=== PATIENT | female | born 1930 | race Caucasian/White ===

== ENCOUNTER 2019-02-23 05:47 | Inpatient (IN) | payer OTHER, MEDICARE ==
[2019-02-21 11:16] VITALS: BMI 27.4
[2019-02-23] MEDS ORDERED: TRANEXAMIC ACID 1000 MG/10 ML VIAL IVPUSH ONE (06:43)
[2019-02-23] MEDS ORDERED: VANCOMYCIN 1,000 MG in DEXTROSE 5%-WATER - 250 ML IVPB ONE (06:43)
[2019-02-23] MEDS ORDERED: ePHEDrine SULFATE 50 MG/1 ML AMPULE ONE (07:09)
[2019-02-23] MEDS ORDERED: PROPOFOL 20 ML ONE (07:09)
[2019-02-23] MEDS ORDERED: SUCCINYLCHOLINE CHLORIDE 200 MG/10 ML VIAL ONE (07:09)
[2019-02-23] MEDS ORDERED: ONDANSETRON 4 MG/2 ML VIAL ONE (07:12)
[2019-02-23] MEDS ORDERED: SODIUM CHLORIDE 0.9% P/F 10 ML VIAL IJ ONE ×2 (07:12→07:15)
[2019-02-23] MEDS ORDERED: PHENYLEPHRINE HCL 10 MG/1 ML SINGLE DOSE VIAL ONE (07:12)
[2019-02-23] MEDS ORDERED: LIDOCAINE HCL/PF 2% SDV 5ML VIAL ONE (07:12)
[2019-02-23] MEDS ORDERED: BUPIVACAINE HCL/PF 0.5% (5MG/ML) 10 ML VIAL ONE (07:21)
[2019-02-23] MEDS ORDERED: ceFAZolin SODIUM 1 GM VIAL ONE (08:23)
[2019-02-23] MEDS ORDERED: MIDAZOLAM HCL 2 MG/2 ML SINGLE DOSE VIAL ONE ×2 (09:23→09:42)
[2019-02-23] MEDS ORDERED: MAG HYDROX/AL HYDROX/SIMETH 30 ML UNIT-DOSE CUP PO PRN (09:55)
[2019-02-23] MEDS ORDERED: ONDANSETRON 4 MG/2 ML VIAL IVPUSH PRN (09:55)
--- NOTE | 2019-02-23 09:57 | PN ---
Progress Note (short form) - Note Progress Note: sdf
[2019-02-23] MEDS ORDERED: LACTATED RINGERS SOLUTION 1,000 ML IV SCH ×2 (10:00→10:30)
--- NOTE | 2019-02-23 10:05 | OP ---
Operative Note - Note: Operative Date: 02/23/19 Pre-Operative Diagnosis: Right hip DJD Operation: Right total hip replacement Implants: [place]. Cup - Trident II-Tritanium, 52mm; 1 x 25mm acetabular screw. Poly - 32mm, neutral. Stem - Accolade II, #4, 127 deg NSA (high offset) . Head - 32mm, std. length, delta ceramic/biolox Surgeon: Junior Ballesteros Leather Stamper: Pablito Ballesteros Anesthesiologist/CALENDER OPERATOR HELPER: Sam Abrams Anesthesia: Spinal Specimens Removed: Right femoral head Estimated Blood Loss (mls): 150 Drains & Tubes with Location: 1 x deep HemoVac Fluid Volume Replaced (mls): 1,000 (Crystalloid)
--- NOTE | 2019-02-23 10:08 | PN ---
Progress Note (short form) - Note Progress Note: 88F s/p RIGHT total hip replacement POD #0. -Pain control. -f/u trial of void: 8 hrs. max. -DVT PPx: -Chemical: ASA 81mg PO BID x 6 weeks. -Mechanical: SCD's, CASEY's. -Incentive spirometry. -PT/OT/Rehab, OOB. -WBAT RLE. -(+) Hip abduction pillow. -Maintain hip precautions. -f/u AM labs. -f/u drain output. -Diet as tolerated. -Care per medical hospitalist team. -Discharge planning: f/u [facility] [place] Office 03/03/2019; call for appointment: . -Will follow. Junior Ballesteros MD (Orthopaedic Surgery).
[2019-02-23] MEDS ORDERED: BENZOIN/ALOE VERA/STORAX/TOLU 58 ML BOTTLE ONE (10:14)
[2019-02-23] MEDS ORDERED: DESFLURANE GAS 240 ML BOTTLE IH ONE (10:30)
[2019-02-23] MEDS ORDERED: oxyCODONE HCL 5 MG TABLET PO PRN (10:32)
--- NOTE | 2019-02-23 11:27 | CONSULT ---
Consultation: REQUESTING PROVIDER: Dr. Junior Ballesteros CONSULT REQUEST: We have been asked to medically evaluate this patient post- operatively. HISTORY OF PRESENT ILLNESS: 88 year-old with a PMH significant for HTN, HLD, asthma, osteoarthritis, s/p lumbar surgery, s/p bilateral total knee replacements, now s/p right total hip replacement on 02/23/19. REVIEW OF SYSTEMS: CONSTITUTIONAL: Absent: fever, chills, diaphoresis, generalized weakness, malaise, loss of appetite, weight change HEENT: Absent: rhinorrhea, nasal congestion, throat pain, throat swelling, difficulty swallowing, mouth swelling, ear pain, eye pain, visual changes CARDIOVASCULAR: Absent: chest pain, syncope, palpitations, irregular heart rate, lightheadedness , peripheral edema RESPIRATORY: Absent: cough, shortness of breath, dyspnea with exertion, orthopnea, wheezing, stridor, hemoptysis GASTROINTESTINAL: Absent: abdominal pain, abdominal distension, nausea, vomiting, diarrhea, constipation, melena, hematochezia GENITOURINARY: Absent: dysuria, frequency, urgency, hesitancy, hematuria, flank pain, genital pain MUSCULOSKELETAL: Absent: myalgia, arthralgia, joint swelling, back pain, neck pain SKIN: Absent: rash, itching, pallor HEMATOLOGIC/IMMUNOLOGIC: Absent: easy bleeding, easy bruising, lymphadenopathy, frequent infections ENDOCRINE: Absent: unexplained weight gain, unexplained weight loss, heat intolerance, cold intolerance NEUROLOGIC: Absent: headache, focal weakness or paresthesias, dizziness, unsteady gait, seizure, mental status changes, bladder or bowel incontinence PSYCHIATRIC: Absent: anxiety, depression, suicidal or homicidal ideation, hallucinations. PHYSICAL EXAMINATION Vital Signs - 24 hr 02/23/19 07:02 Temperature 98.4 F Pulse Rate 76 Respiratory 18 Rate Blood Pressure 165/57 L GENERAL: Awake, alert, and fully oriented, in no acute distress. LUNGS: Very mild anterior expiratory wheezing. No accessory muscle use. HEART: Regular rate and rhythm, normal S1 and S2 ABDOMEN: Soft, nontender, not distended UPPER EXTREMITIES: 2+ pulses, warm, well-perfused. No cyanosis. No clubbing. Cap refill <2 seconds. No peripheral edema. LOWER EXTREMITIES: 2+ pulses, warm, well-perfused. No calf tenderness. No peripheral edema. Flex/extend toes, 5/5 sensory; wedge pillow; right hip surgical dressing c/d/i; hemovac drain NEUROLOGICAL: Cranial nerves II-XII intact. Normal speech. Current Medications Generic Name Dose Route Start Last Admin Trade Name Freq PRN Reason Stop Dose Admin Acetaminophen 650 mg 02/23/19 12:00 02/23/19 13:33 Tylenol - PO 02/26/19 11:59 Not Given Q6H HERNANDEZ Al Hydroxide/Mg Hydroxide 30 ml 02/23/19 09:55 Mylanta Oral Suspension - PO Q4H PRN DYSPEPSIA Amlodipine Besylate 5 mg 02/23/19 10:00 02/23/19 13:33 Norvasc - PO Not Given DAILY [facility] Aspirin 81 mg 02/23/19 10:00 02/23/19 13:32 Asa - PO Not Given BID [facility] Fentanyl 25 mcg 02/23/19 10:30 Sublimaze Injection - IVPUSH [id number] PRN PAIN-PACU ORDER X 4 DOSES ONLY Furosemide 20 mg 02/23/19 22:00 Lasix - PO BID [facility] Cefazolin Sodium 1 gram in 50 mls @ 100 mls/hr 02/23/19 17:00 Ancef 1 Gm Premixed Ivpb - IVPB 02/24/19 01:29 Q8H [facility] Lactated Ringer's 1,000 mls @ 125 mls/hr 02/23/19 10:00 02/23/19 13:32 Lactated Ringers Solution IV 02/24/19 06:00 Not Given ASDIR [facility] Magnesium Hydroxide 30 ml 02/23/19 09:55 Milk Of Magnesia - PO PRN PRN CONSTIPATION Montelukast Sodium 10 mg 02/23/19 14:30 Singulair - PO DAILY [facility] Non-Formulary Medication 1 each 02/23/19 22:00 Fluticasone/Vilanterol [Breo Ellipta 200-25 Mcg Inh] IH HS [facility] Ondansetron HCl 4 mg 02/23/19 09:55 Zofran Injection IVPUSH Q6H PRN NAUSEA Oxycodone HCl 5 mg 02/23/19 10:32 Roxicodone - PO Q3H PRN PAIN LEVEL 1-5 Oxycodone HCl 10 mg 02/23/19 10:32 Roxicodone - PO Q3H PRN PAIN LEVEL 6-10 Pantoprazole Sodium 40 mg 02/23/19 10:00 02/23/19 13:33 Protonix - PO Not Given DAILY [facility] Senna/Docusate Sodium 2 tablet 02/23/19 10:00 02/23/19 13:33 Pericolace - PO Not Given BID HERNANDEZ Pre op Hgb 12.6 BUN 19 Cr 0.85 Intra op Fluids: 1150mL Cefazolin x 1 ASSESSMENT/PLAN 88 year-old female with a PMH significant for HTN, HLD, asthma, osteoarthritis s /p lumbar surgery, s/p bilateral total knee replacements, now s/p right total hip replacement on 02/23/19. Right total hip replacement --POD #0 --perioperative antibiotics per surgery --pain management per surgery --ASA 81mg BID --protonix --bowel regimen --incentive spirometry --Hemovac drain, monitor output --no schrader Hypertension --BP stable --continue amlodipine and lasix BID Hyperlipidemia --not on statin therapy Asthma --on Breo at home, start Spiriva (formulary equivalent) FEN Fluids: LR @ 125mL/hr Electrolytes: replete as indicated Nutrition: regular diet DVT prophylaxis: OOB, ambulation, SCDs, TEDs, ASA 81mg BID Physical therapy Dispo: continues to require inpatient care. Full code. Dispo: We will continue to follow the patient. Thank you for this consultative opportunity. Visit type - Emergency Visit Emergency Visit: No - New Patient This patient is new to me today: Yes Date on this admission: 02/23/19 - Critical Care Critical Care patient: No
--- NOTE | 2019-02-23 12:22 | OP ---
DATE OF OPERATION: 02/23/2019 SURGEON: Junior Ballesteros MD ASSISTANTS: Pablito Ballesteros MD, СЕРГЕЙ Iraheta PREOPERATIVE DIAGNOSIS: Osteoarthritis of the right hip.. POSTOPERATIVE DIAGNOSIS: Osteoarthritis of the right hip. OPERATION PERFORMED: Right cementless total hip arthroplasty. ANESTHESIA: Spinal anesthesia with conscious sedation. ANTIBIOTICS: Kefzol 2 g preoperatively. Kefzol 1 g given at the time of the insertion of the femoral component. BLOOD LOSS: 150 mL OPERATION DETAILS: The patient was correctly identified, placed supine on the operating room table. The right lower extremity was prepped, draped in the routine manner with Betadine scrub solution, wiped with alcohol, DuraPrep applied.. A time-out was called. Imaging was available for intraoperative assessment. In the supine position, all appropriate bony points were appropriately padded. After complete draping and routine use of Betadine scrub solution, wiped with alcohol, and DuraPrep applied, the skin was opened from 2 inches below the trochanteric ridge in the proximal lateral side of the right thigh extending proximally to the level of a line drawn from the anterior superior iliac spines vertically down. Skin was opened, subcutaneous tissue incised down to the fascia. The fascia was opened. Charnley retractor was placed in the subfascial plane to expose the hip abductor mechanism. Using an anterior bias direct lateral approach, the hip abductor muscle was dissected off the anterior aspect of the trochanter, and then, the entire capsule lifted using sharp dissection from superolateral aspect of the acetabulum to inferomedial aspect of the acetabulum. Once this had been performed, significant synovitis of this hip was accounted, and a complete destructive arthropathy encountered of the femoral head. An anterior retractor, inferior retractor, posterior retractor were utilized to expose the acetabulum. This gave excellent exposure. The labral tissue was excised. Once this had been performed, the reaming was to size 52, and a size 52 Trident 2 titanium cup (Mary) was inserted. The hip was closed, and the position of the anteversion was about 10-15 degrees anteversion approximately. This cup was seated solidly with excellent press-fit fixation. A single screw was utilized to help augment fixation appropriately. The 32-mm polyethylene liner was then inserted. The hip was abducted, externally rotated, and a starter punch device was utilized to enter the tip of the greater trochanter. The canal was appropriately reamed and a size 4 Accolade 2 127-degree femoral neck shaft angle stem was inserted. A 32-mm ceramic head and that was a +0 head, was inserted. The stem was seated solidly in position with no complications. Trialing revealed the appropriate leg length was equal, slightly over-lengthened because of the diseased contralateral hip, but completely stable through all range of movement including flexion, abduction, internal rotation, as well as extension external rotation. The wounds were thoroughly lavaged throughout the procedure. The definitive implants were then seated after trialing components. Closure: Hip abductor fascia 1 Vicryl, fascia 1 Vicryl, subcutaneous 1 and 2-0 Vicryl in 2 layers, skin 3-0 Monocryl with Steri-strips, drainage 1/8-inch Hemovac x1. Overall comment, the operation went extremely well, no complications. Postoperative x-rays revealed excellent seating of implants. MD KARSON De Jesus/[id number]
[2019-02-23] MEDS ORDERED: ACETAMINOPHEN 325 MG TABLET (FP) ONE (12:30)
[2019-02-23] MEDS: ASPIRIN 81 MG CHEWABLE TABLETS PO SCH ×2 (13:32→21:20)
[2019-02-23] MEDS: amLODIPine BESYLATE 5 MG TABLET (FP) PO SCH (13:33)
[2019-02-23] MEDS: PANTOPRAZOLE 40 MG TABLET (FP) PO SCH (13:33)
[2019-02-23] MEDS: SENNOSIDES/DOCUSATE COMBO (SENNA PLUS) TABLET (UD) PO SCH ×2 (13:33→21:20)
[2019-02-23] MEDS: ACETAMINOPHEN 325 MG TABLET (FP) PO SCH ×3 (13:33→23:51)
[2019-02-23] MEDS: oxyCODONE HCL 5 MG TABLET PO PRN ×2 (15:06→21:21)
[2019-02-23] MEDS: ACETAMINOPHEN 1000 MG/100 ML VIAL (NON FORMULARY) IVPB PRN (16:09)
[2019-02-23] MEDS: HYDROmorphone HCL CARPU-JECT 1 MG/1 ML DISP.SYRIN IVPB PRN ×2 (16:46→23:20)
[2019-02-23] MEDS: CEFAZOLIN 1 GM/D5W 1 GRAM/50 ML BAG IVPB SCH (16:46)
[2019-02-23] MEDS: KETOROLAC TROMETHAMINE 15 MG/ML VIAL IVPUSH SCH ×2 (16:58→22:15)
[2019-02-23] MEDS ORDERED: PT OWN MED DRAWER 7, Y5N ONE (21:17)
[2019-02-23] MEDS: MONTELUKAST NA 10 MG TABLET PO SCH (21:20)
[2019-02-23] MEDS: BUDESONIDE/FORMETEROL FUMARATE 160/4.5 mcg INHALER IH SCH (21:20)
[2019-02-23] MEDS: MAGNESIUM HYDROX 2400MG/30ML ORAL SUSPENSION 30 ML CUP PO PRN (21:25)
[2019-02-23] MEDS ORDERED: PATIENT'S OWN MEDICATION (NON-FORMULARY) (Fluticasone/Vilanterol [Breo Ellipta 200-25 Mcg IH SCH (22:00)
[2019-02-24] MEDS: CEFAZOLIN 1 GM/D5W 1 GRAM/50 ML BAG IVPB SCH (00:45)
[2019-02-24] MEDS: KETOROLAC TROMETHAMINE 15 MG/ML VIAL IVPUSH SCH ×4 (04:28→21:35)
[2019-02-24] MEDS: ACETAMINOPHEN 325 MG TABLET (FP) PO SCH ×3 (06:35→18:01)
[2019-02-24] MEDS: FUROSEMIDE 20 MG TABLET (FP) PO SCH ×2 (06:35→14:00)
[2019-02-24 07:15] LABS: BASO % 0.4 % (0-2.0); HEMATOCRIT 32.2 % (32.4-45.2); HEMOGLOBIN 10.8 GM/dl (10.7-15.3); LYMPH % 17.5 % (8-40); MCH 32.1 pg (25.7-33.7); MCHC 33.6 g/dl (32.0-36.0); MEAN CELL VOLUME 95.7 fl (80-96); MEAN PLT VOLUME 9.1 fl (7.5-11.1); MONO % 9.7 % (3.8-10.2); NEUT % 70.4 % (42.8-82.8); PLATELET COUNT 172 K/MM3 (134-434); RBC 3.36 M/mm3 (3.60-5.2); RDW 13.1 % (11.6-15.6); WHITE BLOOD COUNT 11.1 K/mm3 (4.0-10.8)
[2019-02-24 07:24] LABS: ALBUMIN 3.1 g/dl (3.4-5.0); ALK PHOS 53 U/L (45-117); ANION GAP 10 MMOL/L (8-16); BILIRUBIN,TOTAL 0.7 mg/dl (0.2-1); BLOOD UREA NITROGEN 23 mg/dl (7-18); CALCIUM 8.6 mg/dl (8.5-10); CHLORIDE 102 mmol/L (98-107); CO2 28 mmol/L (21-32); CREATININE 0.9 mg/dl (0.55-1.3); GLUCOSE,RANDOM 123 mg/dl (74-106); SGOT/AST 34 U/L (15-37); SGPT/ALT 18 U/L (13-61); SODIUM 140 mmol/L (136-145); TOT PROT 5.3 g/dl (6.4-8.2)
--- NOTE | 2019-02-24 08:05 | PN ---
Progress Note (short form) - Note Progress Note: POD #1 S/P R THR Alert. No acute events since surgery per RN notes. Patient is OOB and sitting in recliner with legs elevated and hip abduction pillow in place. C/o incisional tenderness. Adequate pain control with medications ordered. Last Vital Signs Temp Pulse Resp BP Pulse Ox 98.5 F 83 18 103/59 L 100 02/24/19 05:52 02/24/19 05:52 02/24/19 06:41 02/24/19 06:41 02/24/19 05:52 CBC, BMP 02/24/19 06:53 02/24/19 06:53 Drain Output 02/23/19 02/23/19 02/24/19 18:00 22:00 05:52 Drain 80 30 80 Gen: alert. nad RLE: abduction pillow in place. Dressing c/d/i. Drain on suction (thinning out...more serous). Calf soft/supple/nt bilat. GMNVI bilat. SCDs bilat. Problem List - Problems (1) Osteoarthritis of right hip Assessment/Plan: POD #1 - Pain control. -DVT PPx: -Chemical: ASA 81 mg po BID x 6 weeks -Mechanical: CASEY's, SCD's -Incentive Spirometry. -PT/OT/Rehab, OOB. -WBAT RLE. -Posterior R hip precautions. -f/u drain output...most likely dc in AM -f/u post-op TOV. -Hip abduction pillow -Care per medical hospitalist team. -Discharge planning Code(s): M16.11 - UNILATERAL PRIMARY OSTEOARTHRITIS, RIGHT HIP
[2019-02-24] MEDS: ACETAMINOPHEN 1000 MG/100 ML VIAL (NON FORMULARY) IVPB PRN (08:35)
--- NOTE | 2019-02-24 09:30 | PN ---
Physical Exam: SUBJECTIVE: Patient seen and examined oob to chair. OBJECTIVE: Vital Signs Period Temp Pulse Resp BP Sys/Bolden Pulse Ox Last 24 Hr 97.5 F-99 F 68-92 14-21 97-138/33-90 99-100 GENERAL: Awake, alert, and fully oriented, in no acute distress. LUNGS: Very mild anterior expiratory wheezing. No accessory muscle use. HEART: Regular rate and rhythm, normal S1 and S2 ABDOMEN: Soft, nontender, not distended UPPER EXTREMITIES: 2+ pulses, warm, well-perfused. No cyanosis. No clubbing. Cap refill <2 seconds. No peripheral edema. LOWER EXTREMITIES: 2+ pulses, warm, well-perfused. No calf tenderness. No peripheral edema. Flex/extend toes, 5/5 sensory; right hip surgical dressing c/d /i; hemovac drain NEUROLOGICAL: Cranial nerves II-XII intact. Normal speech. Laboratory Results - last 24 hr 02/24/19 02/24/19 06:53 06:53 WBC 11.1 H RBC 3.36 L Hgb 10.8 Hct 32.2 L MCV 95.7 MCH 32.1 MCHC 33.6 RDW 13.1 Plt Count 172 MPV 9.1 Absolute Neuts (auto) 7.9 Neutrophils % 70.4 Lymphocytes % 17.5 Monocytes % 9.7 Eosinophils % 2.0 Basophils % 0.4 Sodium 140 Potassium 4.0 Chloride 102 Carbon Dioxide 28 Anion Gap 10 BUN 23 H Creatinine 0.9 Creat Clearance w eGFR 59.09 Random Glucose 123 H Calcium 8.6 Magnesium 2.0 Total Bilirubin 0.7 AST 34 ALT 18 Alkaline Phosphatase 53 Total Protein 5.3 L Albumin 3.1 L Active Medications Generic Name Dose Route Start Last Admin Trade Name Freq PRN Reason Stop Dose Admin Acetaminophen 650 mg 02/23/19 12:00 02/24/19 06:35 Tylenol - PO 02/26/19 11:59 650 mg Q6H HERNANDEZ Administration Acetaminophen 1,000 mg 02/23/19 15:39 02/24/19 08:35 Ofirmev Injection - IVPB 1,000 mg Q6H PRN Administration PAIN LEVEL 1-5 Al Hydroxide/Mg Hydroxide 30 ml 02/23/19 09:55 Mylanta Oral Suspension - PO Q4H PRN DYSPEPSIA Amlodipine Besylate 5 mg 02/23/19 10:00 02/23/19 13:33 Norvasc - PO Not Given DAILY [facility] Aspirin 81 mg 02/23/19 10:00 02/23/19 21:20 Asa - PO 81 mg BID HERNANDEZ Administration Budesonide/Formoterol Fumarate 2 puff 02/23/19 22:00 02/23/19 21:20 Symbicort 160/4.5mcg - IH 2 puff BID HERNANDEZ Administration Fentanyl 25 mcg 02/23/19 10:30 Sublimaze Injection - IVPUSH [id number] PRN PAIN-PACU ORDER X 4 DOSES ONLY Furosemide 20 mg 02/24/19 06:00 02/24/19 06:35 Lasix - PO 20 mg BIDLASIX HERNANDEZ Administration Hydromorphone HCl 0.5 mg 02/23/19 16:12 02/23/19 23:20 Dilaudid Injection - IVPB 0.5 mg Q4H PRN Administration PAIN LEVEL 6-10 Ketorolac Tromethamine 15 mg 02/23/19 16:15 02/24/19 04:28 Toradol Injection - IVPUSH 02/28/19 16:14 15 mg Q6H HERNANDEZ Administration Magnesium Hydroxide 30 ml 02/23/19 09:55 02/23/19 21:25 Milk Of Magnesia - PO 30 ml PRN PRN Administration CONSTIPATION Montelukast Sodium 10 mg 02/23/19 22:00 02/23/19 21:20 Singulair - PO 10 mg HS HERNANDEZ Administration Ondansetron HCl 4 mg 02/23/19 09:55 Zofran Injection IVPUSH Q6H PRN NAUSEA Oxycodone HCl 5 mg 02/23/19 10:32 02/23/19 21:21 Roxicodone - PO 5 mg Q3H PRN Administration PAIN LEVEL 1-5 Oxycodone HCl 10 mg 02/23/19 10:32 Roxicodone - PO Q3H PRN PAIN LEVEL 6-10 Pantoprazole Sodium 40 mg 02/23/19 10:00 02/23/19 13:33 Protonix - PO Not Given DAILY [facility] Senna/Docusate Sodium 2 tablet 02/23/19 10:00 02/23/19 21:20 Pericolace - PO 2 tablet BID [facility] Administration Tramadol HCl 50 mg 02/23/19 16:14 Ultram - PO Q8H PRN PAIN LEVEL 4 - 6 Pre op Hgb 12.6 BUN 19 Cr 0.85 Intra op Fluids: 1150mL Cefazolin x 1 ASSESSMENT/PLAN 88 year-old female with a PMH significant for HTN, HLD, asthma, osteoarthritis s /p lumbar surgery, s/p bilateral total knee replacements, now s/p right total hip replacement on 02/23/19. Right total hip replacement --POD #1 --perioperative antibiotics per surgery --pain management per surgery --ASA 81mg BID --protonix --bowel regimen --incentive spirometry --Hemovac drain: 110cc's overnight --no schrader Hypertension --BP stable --continue amlodipine and lasix BID Hyperlipidemia --not on statin therapy Asthma --on Breo at home, continue Spiriva (formulary equivalent) FEN Fluids: PO intake adequate Electrolytes: replete as indicated Nutrition: regular diet DVT prophylaxis: OOB, ambulation, SCDs, TEDs, ASA 81mg BID Physical therapy Dispo: continues to require inpatient care. Full code. Dispo: We will continue to follow the patient. Thank you for this consultative opportunity. Visit type - Emergency Visit Emergency Visit: Yes ED Registration Date: 02/23/19 Care time: The patient presented to the Emergency Department on the above date and was hospitalized for further evaluation of their emergent condition. - New Patient This patient is new to me today: No - Critical Care Critical Care patient: No
[2019-02-24] MEDS: amLODIPine BESYLATE 5 MG TABLET (FP) PO SCH (10:32)
[2019-02-24] MEDS: oxyCODONE HCL 5 MG TABLET PO PRN (10:35)
[2019-02-24] MEDS: PANTOPRAZOLE 40 MG TABLET (FP) PO SCH (10:35)
[2019-02-24] MEDS: SENNOSIDES/DOCUSATE COMBO (SENNA PLUS) TABLET (UD) PO SCH ×2 (10:35→21:34)
[2019-02-24] MEDS: ASPIRIN 81 MG CHEWABLE TABLETS PO SCH ×2 (10:35→21:34)
[2019-02-24] MEDS: BUDESONIDE/FORMETEROL FUMARATE 160/4.5 mcg INHALER IH SCH ×2 (10:36→21:34)
--- NOTE | 2019-02-24 11:01 | PN ---
Progress Note (short form) - Note Progress Note: POD1 s/p right hip arthroplasty. Pt is ambulating, c/o incisional pain (under control with meds). She's looking fwd to discharge ZECHARIAH. No anesthetic issues/ complications, doing well.
[2019-02-24] MEDS: MONTELUKAST NA 10 MG TABLET PO SCH (21:34)
[2019-02-25] MEDS: ACETAMINOPHEN 325 MG TABLET (FP) PO SCH ×4 (01:02→17:33)
[2019-02-25] MEDS: KETOROLAC TROMETHAMINE 15 MG/ML VIAL IVPUSH SCH ×4 (04:26→21:51)
[2019-02-25] MEDS: diphenhydrAMINE HCL 25 MG CAPSULE (FP) PO PRN (05:45)
[2019-02-25] MEDS: FUROSEMIDE 20 MG TABLET (FP) PO SCH ×2 (05:45→14:57)
[2019-02-25 07:30] LABS: HEMATOCRIT 29.6 % (32.4-45.2); HEMOGLOBIN 9.8 GM/dl (10.7-15.3); MCHC 33.1 g/dl (32.0-36.0); MEAN CELL VOLUME 96.7 fl (80-96); MEAN PLT VOLUME 9.5 fl (7.5-11.1); PLATELET COUNT 160 K/MM3 (134-434); RBC 3.06 M/mm3 (3.60-5.2); WHITE BLOOD COUNT 11.4 K/mm3 (4.0-10.8)
--- NOTE | 2019-02-25 08:09 | DS ---
Physical Exam: SUBJECTIVE: POD #2 right TANIA Patient seen and examined at bedside with no complaints. Patient has ambulated with PT and her walker. She is tolerating her diet, voiding and denies any CP, SOB,N/V, fever or chills. OBJECTIVE: Vital Signs Period Temp Pulse Resp BP Sys/Bolden Pulse Ox Last 24 Hr 97.8 F-98.7 F 87-108 18-18 101-146/34-53 96-100 PHYSICAL EXAM 02/25/19 GENERAL: The patient is awake, alert, and fully oriented, in no acute distress. HEAD: Normal with no signs of trauma. EYES: sclera anicteric, conjunctiva clear. LUNGS: no auditory wheezes, no crackles, no accessory muscle use. EXTREMITIES: right hip dressing c/d/i with surrounding tissue intact, mild edema and ecchymosis appropriate to status. J/P drain removed with tip fully intact. drain site clean and dry with no active bleeding. B/L LE compartments soft, supple and non-tender to palpation, 5/5 dorsi/ plantar flexion with 2+ DP pulses, feet warm, well-perfused, with mild edema. NEUROLOGICAL: Cranial nerves II through XII grossly intact. Normal speech, gait not observed. PSYCH: Normal mood, normal affect. SKIN: Warm, dry, normal turgor, no rashes or lesions noted. LABS CBC, BMP 05/03/19 07:03 0502/19 06:53 HOSPITAL COURSE: Date of Admission:02/23/19 The patient was admitted to the Med-Surg Unit after an elective repair of her right hip OA. Now, s/p right TANIA. An xray was obtained in the OR and confirmed hardware placement in good position with no fractures or dislocations.The day of surgery, the patient ambulated the hallways with assistance. Narcotic and non -narcotic pain management control was achieved with an oral and IV approach. POD #2, the surgical drain was removed fully intact and without incident. Germaine-operative IV ABX were administered. DVT prophylaxis was achieved with SCDs , aspirin and early ambulation. The patient ambulated with Physical Therapy and rehab was recommended upon discharge. Narcotic scripts and or muscle relaxants were checked with COS METHODS ANALYST prior to escibe. The discharge instructions and an oral pain management plan were reviewed with the patient. All questions answered. Above plan discussed with Dr. Ballesteros and agreed. Date of Discharge: 02/26/19 Minutes to complete discharge: 30 Discharge Summary Reason For Visit: RIGHT HIP OSTEOARTHRITIS Current Active Problems Osteoarthritis of right hip (Acute) Condition: Stable - Instructions Diet, Activity, Other Instructions: Dr. Ballesteros Discharge Instructions for Hip Replacement Post Operative Instructions Physical activity Physical Therapist will come to your home for the first 5 days. You will be set up with outpatient PT at your first post-operative visit. Use assistive devices for ambulation at all times. Weight bearing as tolerated on your surgical side. Wound care Leave your surgical dressing in place. Do not change the dressing until seen by your surgeon in the office. No baths or showers. Do not submerge your incision. Do not apply any ointments or lotions to your incision. Please call the office if your dressing is soiled/dirty or is falling off. Apply Graduated Compression Stockings (TEDS) to both lower extremities-remove daily for hygiene ONLY. Diet There are no dietary restrictions. Eat healthy, high-fiber foods. Drink 6 to 8 glasses of liquid each day. This will assist in keeping your bowels are regular. Pain management Any pain prescription medication ordered should be taken as prescribed for moderate to severe pain. Do not take additional Tylenol while taking Percocet. Posterior Hip Precautions: Do not cross the leg you had surgery on over your other leg. (Do not cross your legs.)Use an elevated toilet seat. Do not sit on low chairs or beds. Use purple pillow (abductor) when lying in bed. Take Aspirin 81 mg two times a day for a total of 6 weeks to prevent blood clots. ISTOP: [id number] Call Dr. Ballesteros for any of the following: Severe pain not relieved by medication Fever of 101 or higher Excessive bleeding or drainage on dressing Inability to urinate If you experience chest pain or shortness of breath, please seek emergency care immediately. Please call the office at to confirm your post-op appointment for the week following surgery. Disposition: HOME - Home Medications Comprehensive Discharge Medication List: Ambulatory Orders Amlodipine Besylate 5 mg PO DAILY 02/21/19 Tramadol HCl 50 mg PO TID PRN 02/21/19 Fluticasone/Vilanterol [Breo Ellipta 200-25 Mcg INH] 1 each IH HS 02/23/19 Furosemide 20 mg PO BID 02/23/19 Montelukast Sodium [Singulair] 10 mg PO DAILY 02/23/19 Problem List - Problems (1) Osteoarthritis of right hip Assessment/Plan: POD #2 right total hip arthroplasty, patient doing well. -Pain control. - continue DVT PPx: -Chemical: ASA 81mg PO BID x 6 weeks. -Mechanical: SCD's, CASEY's. -Incentive spirometry. -PT/OT/Rehab, OOB. -WBAT RLE. -(+) Hip abduction pillow. -Maintain hip precautions. -f/u AM labs. -Diet as tolerated. -Care per medical hospitalist team. -D/C planning for rehab tomorrow if patient remains stable. -Discharge planning: f/u [facility] [place] Office 03/03/2019; call for appointment: . Code(s): M16.11 - UNILATERAL PRIMARY OSTEOARTHRITIS, RIGHT HIP This patient is new to me today: Yes Date on this admission: 02/25/19 Emergency Visit: No Critical Care patient: No - Discharge Referral Referred to [facility] No
[2019-02-25] MEDS ORDERED: PT OWN MED DRAWER 7, Y5N ONE ×2 (09:10→21:40)
[2019-02-25] MEDS: BUDESONIDE/FORMETEROL FUMARATE 160/4.5 mcg INHALER IH SCH ×2 (09:18→21:49)
[2019-02-25] MEDS: PANTOPRAZOLE 40 MG TABLET (FP) PO SCH (09:19)
[2019-02-25] MEDS: ASPIRIN 81 MG CHEWABLE TABLETS PO SCH ×2 (09:19→21:49)
[2019-02-25] MEDS: traMADol HCL 50 MG TABLET PO PRN (09:19)
[2019-02-25] MEDS: amLODIPine BESYLATE 5 MG TABLET (FP) PO SCH (09:19)
[2019-02-25] MEDS: SENNOSIDES/DOCUSATE COMBO (SENNA PLUS) TABLET (UD) PO SCH ×2 (09:19→21:49)
[2019-02-25] MEDS: MAGNESIUM HYDROX 2400MG/30ML ORAL SUSPENSION 30 ML CUP PO PRN ×2 (13:02→16:45)
--- NOTE | 2019-02-25 16:31 | PATH ---
Surgical Pathology Report Patient Name: VASILIY KEENAN Med. Rec. #: [id number] /Age/Gender: 1930 (Age: 88) / F Account: [id number] Location: [facility] MED-SURG Taken: 02/23/2019 Received: 02/23/2019 Reported: 02/25/2019 Physicians: Junior Ballesteros M.D. Specimen(s) Received RIGHT FEMORAL HEAD Clinical History Right hip osteoarthritis Final Diagnosis FEMORAL HEAD, RIGHT, TOTAL HIP REPLACEMENT: DEGENERATIVE JOINT DISEASE. Electronically Signed Alia Coker M.D. Gross Description Received in formalin, labeled "right femoral head," is a 4.4 x 4.2 x 2.5 cm. deformed appearing femoral head with a 1.2 cm in length portion of femoral neck attached. The margin of resection is smooth. There is a 4.4 cm greatest dimension area of eburnation present. The remaining articular surface is rivero-yellow and diffusely granular and pitted. The underlying trabecular bone is yellow and hard. A retail service representative section is submitted in one cassette, following decalcification. /02/24/2019 saudi02/24/2019
[2019-02-25] MEDS: MONTELUKAST NA 10 MG TABLET PO SCH (21:49)
[2019-02-26] MEDS: ACETAMINOPHEN 325 MG TABLET (FP) PO SCH ×2 (00:23→05:53)
[2019-02-26] MEDS: FUROSEMIDE 20 MG TABLET (FP) PO SCH (05:53)
[2019-02-26] MEDS: diphenhydrAMINE HCL 25 MG CAPSULE (FP) PO PRN (05:53)
[2019-02-26] MEDS: KETOROLAC TROMETHAMINE 15 MG/ML VIAL IVPUSH SCH (06:11)
[2019-02-26 06:17] VITALS: BP 125/43; PULSE 93; TEMP 97.4
[2019-02-26] MEDS: amLODIPine BESYLATE 5 MG TABLET (FP) PO SCH (09:10)
[2019-02-26] MEDS: ASPIRIN 81 MG CHEWABLE TABLETS PO SCH (09:10)
[2019-02-26] MEDS: SENNOSIDES/DOCUSATE COMBO (SENNA PLUS) TABLET (UD) PO SCH (09:11)
[2019-02-26] MEDS: traMADol HCL 50 MG TABLET PO PRN (09:11)
[2019-02-26] MEDS: PANTOPRAZOLE 40 MG TABLET (FP) PO SCH (09:11)
== END 2019-02-26 10:00 | DRG 470 ==
LOC: FM/S 05:47
PROVIDERS: ADMIT Orthopaedic Surgery Orthopaedic Surgery of the Spine; ATTEND Orthopaedic Surgery Orthopaedic Surgery of the Spine
PROC: 0SR90JA Replacement of Right Hip Joint with Synthetic Substitute, Uncemented, Open Approach (ICD-10-PCS; principal; 2019-02-23 08:00)
DX: M16.11 Unilateral primary osteoarthritis, right hip (principal); I10 Essential (primary) hypertension; E78.5 Hyperlipidemia, unspecified; M19.90 Unspecified osteoarthritis, unspecified site
CPT/HCPCS: 36415; 73502-TC-RT-FY; 80048; 80053; 83735; 85025; 85027; 88305-TC; 88311-TC; 94760; 97116-GP; 97163-GP; J0131

== ENCOUNTER 2019-11-23 07:25 | Inpatient (IN) | payer OTHER, MEDICARE ==
[2019-11-23] MEDS ORDERED: CEFAZOLIN 2 GM in DEXTROSE 5%-WATER - 50 ML IVPB ONE (07:30)
[2019-11-23 08:28] VITALS: BMI 24.4
[2019-11-23] MEDS ORDERED: MIDAZOLAM HCL 2 MG/2 ML SINGLE DOSE VIAL ONE ×2 (09:08→12:38)
[2019-11-23] MEDS ORDERED: ROPIVACAINE HCL 0.5% 30ML VIAL ONE (09:08)
[2019-11-23] MEDS ORDERED: EPINEPHrine/PF 1 MG/1 ML (1:1,000) AMPULE ONE (09:08)
[2019-11-23] MEDS ORDERED: TRANEXAMIC ACID 1000 MG/10 ML VIAL IVPUSH ONE (10:00)
[2019-11-23] MEDS ORDERED: BUPIVACAINE HCL/PF 0.5% (5 MG/ML) 30 ML VIAL IJ ONE (10:10)
[2019-11-23] MEDS ORDERED: ONDANSETRON 4 MG/2 ML VIAL IVPUSH PRN (10:13)
[2019-11-23] MEDS ORDERED: PROMETHAZINE HCL 25 MG/1 ML VIAL IVPUSH PRN (10:13)
[2019-11-23] MEDS ORDERED: LACTATED RINGERS SOLUTION 1,000 ML IV SCH ×2 (10:15→14:15)
[2019-11-23] MEDS ORDERED: TRANEXAMIC ACID 1000 MG/10 ML VIAL ONE ×2 (11:53→12:30)
[2019-11-23] MEDS ORDERED: ceFAZolin SODIUM 1 GM VIAL ONE ×2 (11:53→12:58)
[2019-11-23] MEDS ORDERED: SODIUM CHLORIDE 0.9% P/F 10 ML VIAL IJ ONE (12:58)
[2019-11-23] MEDS ORDERED: BENZOIN/ALOE VERA/STORAX/TOLU 58 ML BOTTLE ONE (13:08)
[2019-11-23] MEDS ORDERED: MAGNESIUM HYDROX 2400MG/30ML ORAL SUSPENSION 30 ML CUP PO PRN (14:08)
[2019-11-23] MEDS ORDERED: MAG HYDROX/AL HYDROX/SIMETH 30 ML UNIT-DOSE CUP PO PRN (14:08)
--- NOTE | 2019-11-23 14:12 | PN ---
Progress Note (short form) - Note Progress Note: 89F s/p LEFT total hip replacement POD #0. -Pain control: per anaesthesia team. -DVT PPx: -Chemical: ASA 81mg PO BID x 6 weeks. -Mechanical: CASEY's, SCD's. -Incentive spirometry q15 min. -PT/OT/Rehab, OOB. -WBAT LLE. -Post-op Ancef x 3 doses. -Hip abduction pillow. -Left hip precautions. -f/u post-op TOV: 8 hours max. -f/u AM labs. -Diet as tolerated. -Care per medical hospitalist team. -Discharge planning: f/u [facility] [place] Office in 7-10 days; call for appointment . -Will follow. Junior Ballesteros MD (Orthopaedic Surgery).
--- NOTE | 2019-11-23 14:17 | OP ---
Operative Note - Note: Operative Date: 11/23/19 Pre-Operative Diagnosis: Left hip DJD Operation: Left TANIA Implants: Mary. Cup: Trident-II Tritanium, 50mm. Poly: 28mm, neutral. Stem : Accolade II, #4, 127 deg NSA. Head: Biolox/Delta Ceramic, 28mm, std. Post-Operative Diagnosis: Same as Pre-op Surgeon: Junior Ballesteros Substation Superintendent: Pablito Ballesteros Anesthesiologist/SQL SSRS SSIS DEVELOPER: Pedro Aviles Anesthesia: Spinal Specimens Removed: Left femoral head Estimated Blood Loss (mls): 150 Drains & Tubes with Location: 1 x deep HemoVac Fluid Volume Replaced (mls): 1,400 (Crystalloid) Operative Report Dictated: Yes
[2019-11-23] MEDS ORDERED: ACETAMINOPHEN 325 MG TABLET (FP) ONE (15:27)
[2019-11-23] MEDS: CEFAZOLIN 1 GM/D5W 1 GM/50 ML BAG IVPB SCH (17:45)
[2019-11-23] MEDS: oxyCODONE HCL 5 MG TABLET PO PRN (18:46)
[2019-11-23] MEDS: traMADol HCL 50 MG TABLET PO PRN (19:11)
--- NOTE | 2019-11-23 20:12 | HP ---
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 Ballesteros. Recent Travel: No PAST MEDICAL HISTORY: Hypertension Hyperlipidemia CKD GERD Hypothyroidism PAST SURGICAL HISTORY: Thyroid biopsy Multiple spinal surgeries Bilateral knee surgery Vocal cord surgery Right total hip replacement Social History: , Romansh-speaking, homemaker Smoking: never Alcohol: 1-2 drinks per day Drugs: no Allergies levofloxacin [From Levaquin] Allergy (Severe, Verified 02/17/19 13:26) Rash Penicillins Allergy (Severe, Verified 02/17/19 13:26) Rash HOME MEDICATIONS: Home Medications Medication Instructions Recorded Amlodipine Besylate 5 mg PO DAILY 02/21/19 Tramadol HCl 50 mg PO TID PRN 02/21/19 Montelukast Sodium [Singulair] 10 mg PO DAILY 02/23/19 Budesonide/Formeterol Fumarate 2 puff IH BID inhaler 02/25/19 [SYMBICORT 160/4.5mcg -] Mag Hydrox/Al Hydrox/Simeth 30 ml PO Q4H PRN cup 02/25/19 [Mylanta Oral Suspension -] Magnesium Hydrox 2400MG/30Ml [Milk 30 ml PO PRN PRN cup 02/25/19 of Magnesia -] Sennosides/Docusate Sodium 2 tablet PO BID tablet 02/25/19 [Pericolace -] REVIEW OF SYSTEMS CONSTITUTIONAL: Absent: fever, chills, diaphoresis, generalized weakness, malaise, loss of appetite, weight change HEENT: Absent: rhinorrhea, nasal congestion, throat pain, throat swelling, difficulty swallowing, mouth swelling, ear pain, eye pain, visual changes CARDIOVASCULAR: Absent: chest pain, syncope, palpitations, irregular heart rate, lightheadedness , peripheral edema RESPIRATORY: Absent: cough, shortness of breath, dyspnea with exertion, orthopnea, wheezing, stridor, hemoptysis GASTROINTESTINAL: Absent: abdominal pain, abdominal distension, nausea, vomiting, diarrhea, constipation, melena, hematochezia GENITOURINARY: Absent: dysuria, frequency, urgency, hesitancy, hematuria, flank pain, genital pain MUSCULOSKELETAL: Absent: myalgia, arthralgia, joint swelling, back pain, neck pain SKIN: Absent: rash, itching, pallor HEMATOLOGIC/IMMUNOLOGIC: Absent: easy bleeding, easy bruising, lymphadenopathy, frequent infections ENDOCRINE: Absent: unexplained weight gain, unexplained weight loss, heat intolerance, cold intolerance NEUROLOGIC: Absent: headache, focal weakness or paresthesias, dizziness, unsteady gait, seizure, mental status changes, bladder or bowel incontinence PSYCHIATRIC: Absent: anxiety, depression, suicidal or homicidal ideation, hallucinations. PHYSICAL EXAMINATION Vital Signs - 24 hr 11/23/19 11/23/19 11/23/19 08:20 13:52 13:55 Temperature 98.2 F 97.4 F L Pulse Rate 86 61 55 L Respiratory 18 18 16 Rate Blood Pressure 141/74 132/91 115/49 L O2 Sat by Pulse 100 100 Oximetry (%) 11/23/19 11/23/19 11/23/19 14:00 14:05 14:10 Temperature Pulse Rate 54 L 58 L 59 L Respiratory 15 20 18 Rate Blood Pressure 115/54 L 125/44 L 122/75 O2 Sat by Pulse 100 100 100 Oximetry (%) 11/23/19 11/23/19 11/23/19 14:25 14:40 14:55 Temperature Pulse Rate 50 L 59 L 53 L Respiratory 19 18 20 Rate Blood Pressure 122/78 128/80 120/48 L O2 Sat by Pulse 100 100 98 Oximetry (%) 11/23/19 11/23/19 11/23/19 15:10 15:25 15:40 Temperature 97.4 F L Pulse Rate 54 L 55 L 58 L Respiratory 20 19 18 Rate Blood Pressure 130/60 129/77 129/50 L O2 Sat by Pulse 100 100 100 Oximetry (%) 11/23/19 16:06 Temperature 97.3 F L Pulse Rate 68 Respiratory 16 Rate Blood Pressure 139/45 L O2 Sat by Pulse 99 Oximetry (%) GENERAL: Awake, alert, and fully oriented, in no acute distress. HEAD: Normal with no signs of trauma. EYES: Pupils equal, round and reactive to light, extraocular movements intact, sclera anicteric, conjunctiva clear. No lid lag. EARS, NOSE, THROAT: Ears normal, nares patent, oropharynx clear without exudates. Moist mucous membranes. NECK: Normal range of motion, supple without lymphadenopathy, JVD, or masses. LUNGS: Breath sounds equal, clear to auscultation bilaterally. No wheezes, and no crackles. No accessory muscle use. HEART: Regular rate and rhythm, normal S1 and S2 without murmur, rub or gallop. ABDOMEN: Soft, nontender, not distended, normoactive bowel sounds, no guarding, no rebound, no masses. No hepatomegaly or splenomegaly. MUSCULOSKELETAL: Normal range of motion at all joints. No bony deformities or tenderness. No CVA tenderness. UPPER EXTREMITIES: 2+ pulses, warm, well-perfused. No cyanosis. No clubbing. No peripheral edema. LEFT LOWER EXTREMITY: 2+ pulses, warm, well-perfused. No calf tenderness. No peripheral edema. Surgical dressing c/d/i NEUROLOGICAL: Cranial nerves II-XII intact. Normal speech. 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 Ballesteros. Left total hip arthroplasty --POD #0 --perioperative antibiotics per surgery --pain management per surgery --ASA 81mg BID --protonix --bowel regimen --incentive spirometry --Hemovac drain, monitor output Hypertension --continue amlodipine Hyperlipidemia --not on statin therapy CKD --pre op Cr 1.0 GERD --protonix Hypothyroidism --not on meds FEN Fluids:LR@125mL/hr Electrolytes: replete as indicated Nutrition: regular diet DVT prophylaxis: OOB, ambulation, SCDs, TEDs, ASA 81mg BID Physical therapy Dispo: continues to require inpatient care. Full code. Visit type - Emergency Visit Emergency Visit: No - New Patient This patient is new to me today: Yes Date on this admission: 11/25/19 - Critical Care Critical Care patient: No
[2019-11-23] MEDS: ACETAMINOPHEN 325 MG TABLET (FP) PO SCH (20:16)
[2019-11-23] MEDS: KETOROLAC TROMETHAMINE 15 MG/ML VIAL IVPUSH PRN (20:28)
[2019-11-23] MEDS: ONDANSETRON 4 MG/2 ML VIAL IVPUSH PRN (20:37)
[2019-11-23] MEDS: SENNOSIDES/DOCUSATE COMBO (SENNA PLUS) TABLET (UD) PO SCH (21:47)
[2019-11-23] MEDS: ASPIRIN 81 MG CHEWABLE TABLETS PO SCH (21:47)
[2019-11-23] MEDS: BUDESONIDE/FORMETEROL FUMARATE 160/4.5 mcg INHALER IH SCH (21:50)
[2019-11-24] MEDS: CEFAZOLIN 1 GM/D5W 1 GM/50 ML BAG IVPB SCH ×2 (01:00→06:05)
[2019-11-24] MEDS: ACETAMINOPHEN 325 MG TABLET (FP) PO SCH ×4 (02:08→21:13)
[2019-11-24] MEDS: KETOROLAC TROMETHAMINE 15 MG/ML VIAL IVPUSH PRN ×2 (05:58→14:00)
--- NOTE | 2019-11-24 07:58 | PN ---
Physical Exam: SUBJECTIVE: Patient seen and examined in PT room. OBJECTIVE: Vital Signs Period Temp Pulse Resp BP Sys/Bolden Pulse Ox Last 24 Hr 97.3 F-98.9 F 50-86 15-20 115-176/41-91 93-100 GENERAL: The patient is awake, alert, and fully oriented, in no acute distress. LUNGS: Breath sounds equal, clear to auscultation bilaterally, no wheezes, no crackles, no accessory muscle use. HEART: Regular rate and rhythm, S1, S2 EXTREMITIES: 2+ pulses, warm, well-perfused, no edema. Surgical dressing c/d/i NEUROLOGICAL: Cranial nerves II through XII grossly intact. Normal speech, doing PT exercises. Active Medications Generic Name Dose Route Start Last Admin Trade Name Freq PRN Reason Stop Dose Admin Acetaminophen 650 mg 11/23/19 21:00 11/24/19 02:08 Tylenol - PO 11/26/19 20:59 650 mg Q6H HERNANDEZ Administration Al Hydroxide/Mg Hydroxide 30 ml 11/23/19 14:08 Mylanta Oral Suspension - PO Q4H PRN DYSPEPSIA Amlodipine Besylate 5 mg 11/24/19 10:00 Norvasc - PO DAILY HERNANDEZ Aspirin 81 mg 11/23/19 22:00 11/23/19 21:47 Asa - PO 81 mg BID HERNANDEZ Administration Budesonide/Formoterol Fumarate 2 puff 11/23/19 22:00 11/23/19 21:50 Symbicort 160/4.5mcg - IH 2 puff BID HERNANDEZ Administration Ketorolac Tromethamine 15 mg 11/23/19 19:09 11/24/19 05:58 Toradol Injection - IVPUSH 11/28/19 19:08 15 mg Q8H PRN Administration PAIN LEVEL 4 - 6 Magnesium Hydroxide 30 ml 11/23/19 14:08 Milk Of Magnesia - PO PRN PRN CONSTIPATION Montelukast Sodium 10 mg 11/24/19 22:00 Singulair - PO HS HERNANDEZ Ondansetron HCl 4 mg 11/23/19 14:08 11/23/19 20:37 Zofran Injection IVPUSH 4 mg Q6H PRN Administration NAUSEA Oxycodone HCl 5 mg 11/23/19 15:11 11/23/19 18:46 Roxicodone - PO 5 mg Q3H PRN Administration PAIN LEVEL 4 - 6 Pantoprazole Sodium 40 mg 11/24/19 10:00 Protonix - PO DAILY HERNANDEZ Senna/Docusate Sodium 2 tablet 11/23/19 22:00 11/23/19 21:47 Pericolace - PO 2 tablet BID HERNANDEZ Administration Tramadol HCl 50 mg 11/23/19 15:11 11/23/19 19:11 Ultram - PO 50 mg Q3H PRN Administration PAIN LEVEL 1 - 3 Pre op Hgb 13 BUN 24 Cr 1.0 Intra op Ancef x 3g EBL 180mL LR 1400mL ASSESSMENT/PLAN 89 year-old female with a PMH significant for HTN, HLD, CKD, GERD, hypothyroidism and 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 Ballesteros. Left total hip arthroplasty --POD #1 --perioperative antibiotics per surgery --pain management per surgery --ASA 81mg BID --protonix --bowel regimen --incentive spirometry --Hemovac drain, monitor output Hypertension --continue amlodipine Hyperlipidemia --not on statin therapy CKD --pre op Cr 1.0 GERD --protonix Hypothyroidism --not on meds FEN Fluids: PO intake adequate Electrolytes: replete as indicated Nutrition: regular diet DVT prophylaxis: OOB, ambulation, SCDs, TEDs, ASA 81mg BID Physical therapy Dispo: continues to require inpatient care. Full code. Visit type - Emergency Visit Emergency Visit: No - New Patient This patient is new to me today: No - Critical Care Critical Care patient: No
[2019-11-24 08:15] LABS: CALCIUM 8.3 mg/dl (8.5-10); MAGNESIUM 1.9 mg/dL (1.8-2.4); POTASSIUM 3.8 mmol/L (3.5-5.1)
[2019-11-24 08:22] LABS: HEMATOCRIT 34.7 % (32.4-45.2); HEMOGLOBIN 11.8 GM/dl (10.7-15.3); MCH 32.1 pg (25.7-33.7); MCHC 34.1 g/dl (32.0-36.0); MEAN PLT VOLUME 9.8 fl (7.5-11.1); PLATELET COUNT 161 K/MM3 (134-434); RBC 3.69 M/mm3 (3.60-5.2); RDW 13.2 % (11.6-15.6)
[2019-11-24] MEDS: oxyCODONE HCL 5 MG TABLET PO PRN ×4 (08:53→21:14)
[2019-11-24] MEDS: ASPIRIN 81 MG CHEWABLE TABLETS PO SCH ×2 (08:59→21:13)
[2019-11-24] MEDS: amLODIPine BESYLATE 5 MG TABLET (FP) PO SCH (09:00)
[2019-11-24] MEDS: SENNOSIDES/DOCUSATE COMBO (SENNA PLUS) TABLET (UD) PO SCH ×2 (09:00→21:13)
[2019-11-24] MEDS: BUDESONIDE/FORMETEROL FUMARATE 160/4.5 mcg INHALER IH SCH ×2 (09:00→21:14)
[2019-11-24] MEDS: PANTOPRAZOLE 40 MG TABLET PO SCH (09:00)
--- NOTE | 2019-11-24 09:09 | PN ---
Progress Note (short form) - Note Progress Note: ORTHOPAEDIC SURGERY POD #1 s/p Left Total Hip Arthroplasty Alert. No acute events since surgery per RN notes. Ambulated with walker and RN assist to bathroom --> voided spontaneosuly. C/o incisional tenderness. Adequate pain control with medications ordered. Denies n/v/f/c, CP, palpitations, SOB or AMOS. Last Vital Signs Temp Pulse Resp BP Pulse Ox 98.2 F 84 18 146/49 L 93 L 11/24/19 06:00 11/24/19 06:00 11/24/19 06:00 11/24/19 06:00 11/24/19 06:00 CBC, BMP 11/24/19 07:29 11/24/19 07:29 Gen; NAD LLE: dressing c/d/i. Drain 100 mL (sanguinous). All compartments soft. SCDs bilat. +2 DP/PT bilat. Feet warm. Problem List - Problems (1) Status post total hip replacement, left Assessment/Plan: S/P L TANIA POD #1 - Pain control. -DVT PPx: -Chemical: ASA 81 mg po BID x 6 weeks -Mechanical: CASEY's, SCD's -Incentive Spirometry. -PT/OT/Rehab, OOB. -WBAT LLE -f/u drain output. -f/u am labs. -Care per medical hospitalist team. -Discharge planning: f/u [facility] [place] office on [facility] for appointment: -Will follow Above plan discussed with Dr. Pablito Ballesteros and agrees. Code(s): Z96.642 - PRESENCE OF LEFT ARTIFICIAL HIP JOINT
--- NOTE | 2019-11-24 11:48 | OP ---
DATE OF OPERATION: DATE OF DICTATION: 11/23/2019 SURGEON: Junior Ballesteros MD REGIONAL BUSINESS MANAGER: Pablito Ballesteros MD PREOPERATIVE DIAGNOSIS: Osteoarthritis, left hip. POSTOPERATIVE DIAGNOSIS: Osteoarthritis, left hip. OPERATION PERFORMED: Left cementless total hip arthroplasty ([place]). ANESTHESIA: Conscious sedation with spinal anesthesia and peripheral nerve block. ANTIBIOTICS GIVEN: Ancef 2 g, 1 g of Ancef was given at the time of seating the femoral component. BLOOD LOSS: Approximately 75-100 mL. OPERATION IN DETAIL: The patient brought to the operating room and correctly identified, placed supine on the operating table. Left lower extremity was prepped free, draped in the routine manner with Betadine scrub solution, wiped off with alcohol, DuraPrep applied. With the hip and knee flexed at 45 degrees of flexion and abduction an incision was made, extended down to the greater trochanter, the superior extent of the incision drawn to the line of a vertical line from the anterior-superior iliac spine. The incision was approximately 5-6 inches long. The dissection was taken through the skin, subcutaneous tissue to the fascia. Fascia was opened. Charnley retractors were placed in the subfascial plane. Using anterior direct lateral approach the tissues were easily dissected off the anterior aspect of the femur exposing the femoral neck. placed along the inferior aspect of the femur. The capsule was lifted with 2 radial incisions made into the actual capsule and the superolateral acetabular incision was made to enable easy dislocation of the hip which was performed with an abduction/external rotation maneuver. The femoral neck cut was made in accordance with the principals of Charnley with appropriate line-up of the actual trocar instrumentation device. The acetabulum was exposed with an anterior, posterior, inferior retractor. The labrum was resected. The capsule was maintained. Reaming was to size 48 and a size 50 DePuy. This was a Trident II titanium cup inserted with solid press-fit fixation achieved. A 28-mm polyethylene liner inserted. This was a neutral liner. The hip was abducted into external rotation. Entry into the greater trochanter after retraction of the hip abductor with a Hohmann retractor to keep the muscle out of harm's way. The greater trochanter was entered and an Accolade type II size 4, 127-degree femoral component was inserted. A 28-mm, +0 ceramic head applied to the trunnion. This brought about equal leg length on the table and full range of motion with no noticeable instability in appearance. The tissues were thoroughly lavaged throughout. Leg length was equal. The axial limb alignment was neutral and well aligned. The range of motion was completely neutral and normal throughout all ranges of motion. Closure hip abductor mechanism with No. 1 Vicryl, fascia 1 Vicryl, subcutaneous 1 and 2-0 Vicryl, skin 3-0 Monocryl and Steri-Strips. Drainage 1/8-inch x1. Operation went extremely well. Patient was comfortable throughout. No complications. MD KARSON De Jesus/[id number]
[2019-11-24] MEDS: traMADol HCL 50 MG TABLET PO PRN ×2 (13:51→17:35)
--- NOTE | 2019-11-24 14:08 | PN ---
Progress Note (short form) - Note Progress Note: 89F POD1 s/p L THR under spinal with peripheral nerve blocks doing well. Pt states that pain is well controlled and reports no anesthetic complications. AVSS. Continue current regimen
[2019-11-24] MEDS: MONTELUKAST NA 10 MG TABLET PO SCH (21:13)
[2019-11-25] MEDS: ACETAMINOPHEN 325 MG TABLET (FP) PO SCH ×4 (03:00→21:13)
[2019-11-25] MEDS: traMADol HCL 50 MG TABLET PO PRN (05:56)
[2019-11-25 07:42] LABS: HEMOGLOBIN 11.6 GM/dl (10.7-15.3); MCH 32.3 pg (25.7-33.7); MCHC 34.2 g/dl (32.0-36.0); MEAN CELL VOLUME 94.4 fl (80-96); PLATELET COUNT 172 K/MM3 (134-434); RDW 13.4 % (11.6-15.6); WHITE BLOOD COUNT 11.8 K/mm3 (4.0-10.8)
[2019-11-25] MEDS ORDERED: PT OWN MED DRAWER 7, Y5N ONE (09:17)
[2019-11-25] MEDS: oxyCODONE HCL 5 MG TABLET PO PRN (09:20)
[2019-11-25] MEDS: amLODIPine BESYLATE 5 MG TABLET (FP) PO SCH (09:21)
[2019-11-25] MEDS: ASPIRIN 81 MG CHEWABLE TABLETS PO SCH ×2 (09:21→21:13)
[2019-11-25] MEDS: BUDESONIDE/FORMETEROL FUMARATE 160/4.5 mcg INHALER IH SCH ×2 (09:22→21:15)
[2019-11-25] MEDS: KETOROLAC TROMETHAMINE 15 MG/ML VIAL IVPUSH PRN (09:23)
[2019-11-25] MEDS: PANTOPRAZOLE 40 MG TABLET PO SCH (10:00)
[2019-11-25] MEDS: SENNOSIDES/DOCUSATE COMBO (SENNA PLUS) TABLET (UD) PO SCH ×2 (10:00→21:13)
--- NOTE | 2019-11-25 13:47 | PN ---
Physical Exam: SUBJECTIVE: Patient seen and examined at bedside. OBJECTIVE: Vital Signs Period Temp Pulse Resp BP Sys/Bolden Pulse Ox Last 24 Hr 97.5 F-98.0 F 84-101 17-18 111-133/39-82 94-96 GENERAL: The patient is awake, alert, and fully oriented, in no acute distress. LUNGS: Breath sounds equal, clear to auscultation bilaterally, no wheezes, no crackles, no accessory muscle use. HEART: Regular rate and rhythm, S1, S2 EXTREMITIES: 2+ pulses, warm, well-perfused, no edema. Surgical dressing c/d/i NEUROLOGICAL: Cranial nerves II through XII grossly intact. Normal speech, doing PT exercises. Laboratory Results - last 24 hr 11/25/19 06:59 WBC 11.8 H RBC 3.60 Hgb 11.6 Hct 34.0 MCV 94.4 MCH 32.3 MCHC 34.2 RDW 13.4 Plt Count 172 MPV 10.0 Active Medications Generic Name Dose Route Start Last Admin Trade Name Freq PRN Reason Stop Dose Admin Acetaminophen 650 mg 11/23/19 21:00 11/25/19 09:21 Tylenol - PO 11/26/19 20:59 650 mg Q6H HERNANDEZ Administration Al Hydroxide/Mg Hydroxide 30 ml 11/23/19 14:08 Mylanta Oral Suspension - PO Q4H PRN DYSPEPSIA Amlodipine Besylate 5 mg 11/24/19 10:00 11/25/19 09:21 Norvasc - PO 5 mg DAILY HERNANDEZ Administration Aspirin 81 mg 11/23/19 22:00 11/25/19 09:21 Asa - PO 81 mg BID HERNANDEZ Administration Budesonide/Formoterol Fumarate 2 puff 11/23/19 22:00 11/25/19 09:22 Symbicort 160/4.5mcg - IH 2 puff BID HERNANDEZ Administration Ketorolac Tromethamine 15 mg 11/23/19 19:09 11/25/19 09:23 Toradol Injection - IVPUSH 11/28/19 19:08 15 mg Q8H PRN Administration PAIN LEVEL 4 - 6 Magnesium Hydroxide 30 ml 11/23/19 14:08 11/25/19 09:23 Milk Of Magnesia - PO 30 ml PRN PRN Administration CONSTIPATION Montelukast Sodium 10 mg 11/24/19 22:00 11/24/19 21:13 Singulair - PO 10 mg HS HERNANDEZ Administration Ondansetron HCl 4 mg 11/23/19 14:08 11/23/19 20:37 Zofran Injection IVPUSH 4 mg Q6H PRN Administration NAUSEA Oxycodone HCl 5 mg 11/23/19 15:11 11/25/19 09:20 Roxicodone - PO 5 mg Q3H PRN Administration PAIN LEVEL 4 - 6 Pantoprazole Sodium 40 mg 11/24/19 10:00 11/25/19 10:00 Protonix - PO 40 mg DAILY HERNANDEZ Administration Senna/Docusate Sodium 2 tablet 11/23/19 22:00 11/25/19 10:00 Pericolace - PO 2 tablet BID HERNANDEZ Administration Tramadol HCl 50 mg 11/23/19 15:11 11/25/19 05:56 Ultram - PO 50 mg Q3H PRN Administration PAIN LEVEL 1 - 3 Pre op Hgb 13 BUN 24 Cr 1.0 Intra op Ancef x 3g EBL 180mL LR 1400mL ASSESSMENT/PLAN 89 year-old female with a PMH significant for HTN, HLD, CKD, GERD, hypothyroidism and 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 Ballesteros. Left total hip arthroplasty --POD #2 --perioperative antibiotics complete --pain management per surgery --ASA 81mg BID --protonix --bowel regimen --incentive spirometry Hypertension --continue amlodipine Hyperlipidemia --not on statin therapy CKD --post-op Cr 1.0, stable GERD --protonix Hypothyroidism --not on meds FEN Fluids: PO intake adequate Electrolytes: replete as indicated Nutrition: regular diet DVT prophylaxis: OOB, ambulation, SCDs, TEDs, ASA 81mg BID Physical therapy Dispo: continues to require inpatient care. Full code. Visit type - Emergency Visit Emergency Visit: No - New Patient This patient is new to me today: Yes Date on this admission: 11/25/19 - Critical Care Critical Care patient: No
--- NOTE | 2019-11-25 14:36 | PN ---
Progress Note (short form) - Note Progress Note: POD#2 PT without complaints this am. No CP or SOB. ambulating with PT. Vital Signs Period Temp Pulse Resp BP Sys/Bolden Pulse Ox Last 24 Hr 97.5 F-98.0 F 84-101 18-18 111-133/39-82 94-95 FAISAL; 02/27/5/ml serosangrenous GEN: A&0x3, NAD CV: RRR Lungs: CTA b/l ABD: soft, non-distended, non-tender Left hip: dressing c/d/i. Drain removed with the tip intact. Hip soft. 02/27 dorsi /platnar/EHL b/l. B/l calf soft, non-tender with SCDs?teds in place. CBC, BMP 11/25/19 06:59 11/24/19 07:29 Laboratory Tests 11/24/19 07:29 WBC 10.0 Hgb 11.8 Hct 34.7 D A/P; 89 yo female s/p Left hip replacment Plan for discharge to rehab in the am Continue oral pain manamgent DVT ppx wtih SCDs/TEDS, aspirin 81 mg BID D/w Dr. Ballesteros
[2019-11-25] MEDS: ONDANSETRON 4 MG/2 ML VIAL IVPUSH PRN (16:00)
--- NOTE | 2019-11-25 16:01 | PATH ---
Surgical Pathology Report Patient Name: VASILIY KEENAN Med. Rec. #: [id number] /Age/Gender: 1930 (Age: 89) / F Account: [id number] Location: [facility] Taken: 11/23/2019 Received: 11/23/2019 Reported: 11/25/2019 Physicians: Junior Ballesteros M.D. Specimen(s) Received LEFT FEMORAL HEAD Clinical History Left hip osteoarthritis Final Diagnosis BONE, FEMORAL HEAD, LEFT, TOTAL HIP REPLACEMENT: BONE WITH DEGENERATIVE JOINT DISEASE. Electronically Signed Rosy Knight M.D. Gross Description Received in formalin, labeled "left femoral head," is a 4.0 x 4.0 x 3.6 cm. femoral head with a 1.7 cm in length portion of femoral neck attached. The margin of resection is smooth. There is a 3.6 cm in greatest dimension area of eburnation present. The remaining articular surface is rivero-yellow and diffusely granular. The underlying trabecular bone is yellow and hard. A development representative section is submitted in one cassette, following decalcification. /11/24/2019 [facility]11/24/2019
[2019-11-25] MEDS: POLYETHYLENE GLYCOL 3350 119 GM BTL PO SCH ×2 (17:43→21:14)
[2019-11-25] MEDS: MONTELUKAST NA 10 MG TABLET PO SCH (21:13)
[2019-11-26] MEDS: ACETAMINOPHEN 325 MG TABLET (FP) PO SCH ×2 (06:22→09:13)
[2019-11-26] MEDS ORDERED: PT OWN MED DRAWER 7, Y5N ONE (09:08)
[2019-11-26] MEDS: PANTOPRAZOLE 40 MG TABLET PO SCH (09:13)
[2019-11-26] MEDS: SENNOSIDES/DOCUSATE COMBO (SENNA PLUS) TABLET (UD) PO SCH (09:13)
[2019-11-26] MEDS: ASPIRIN 81 MG CHEWABLE TABLETS PO SCH (09:13)
[2019-11-26] MEDS: amLODIPine BESYLATE 5 MG TABLET (FP) PO SCH (09:13)
[2019-11-26] MEDS: POLYETHYLENE GLYCOL 3350 119 GM BTL PO SCH (09:14)
[2019-11-26] MEDS: BUDESONIDE/FORMETEROL FUMARATE 160/4.5 mcg INHALER IH SCH (09:15)
--- NOTE | 2019-11-26 09:59 | DS ---
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 Ballesteros. Patient tolerated L THR well, no significant bleeding, H/H stable. Feels OK now, denies SOB/CP. Patient scheduled for transfer to Rehab center in the [place] where her family will pick her up and take her there. Currently feels OK, in good spirits, cleared for DC to rehab center. PE GA comfortable, AAox3, speaking in full sentences HEENT NC/AT, EOMI, neck supple, MMM Chest CTAB, no wheezing, no crackles CVS s1, S2+, RRR, Soft HUE+ Abd Soft, NT, ND, BS+, no guarding Ext No LE edema, no calf tenderness, some L hip tenderness on movement Vital Signs - 24 hr 11/25/19 11/25/19 11/25/19 12:00 18:00 19:28 Temperature 97.8 F 98.1 F Pulse Rate 87 97 H Respiratory 18 18 18 Rate Blood Pressure 127/40 L 136/48 L O2 Sat by Pulse 95 95 Oximetry (%) 11/25/19 11/25/19 11/26/19 21:29 22:46 06:00 Temperature 98.7 F 98.3 F Pulse Rate 99 H 85 Respiratory 18 18 Rate Blood Pressure 118/46 L 115/36 L O2 Sat by Pulse 99 94 L Oximetry (%) 11/26/19 09:15 Temperature 98.6 F Pulse Rate 84 Respiratory 18 Rate Blood Pressure 105/35 L O2 Sat by Pulse 96 Oximetry (%) Home Medications Medication Instructions Recorded Amlodipine Besylate 5 mg PO DAILY 02/21/19 Tramadol HCl 50 mg PO TID PRN 02/21/19 Montelukast Sodium [Singulair] 10 mg PO DAILY 02/23/19 Budesonide/Formeterol Fumarate 2 puff IH BID inhaler 02/25/19 [SYMBICORT 160/4.5mcg -] Mag Hydrox/Al Hydrox/Simeth 30 ml PO Q4H PRN cup 02/25/19 [Mylanta Oral Suspension -] Magnesium Hydrox 2400MG/30Ml [Milk 30 ml PO PRN PRN cup 02/25/19 of Magnesia -] Sennosides/Docusate Sodium 2 tablet PO BID tablet 02/25/19 [Pericolace -] Intake & Output 11/23/19 11/24/19 11/25/19 11/26/19 23:59 23:59 23:59 23:59 Intake Total 2825 700 Output Total 750 10 5 Balance 2075 690 -5 Weight 56.699 kg 89 F h/o HTN, HLD, CKD, GERD, hypothyroidism and 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 Ballesteros. POD #3, ready for discharge to rehab center. Left total hip arthroplasty --POD #3 --perioperative antibiotics complete --pain management per surgery --ASA 81mg BID for DVT ppx as per Surgery recommendation --protonix for GI PPX -- aggressive bowel regimen --incentive spirometry, OOB, HOB elevation Hypertension --continue amlodipine Hyperlipidemia --not on statin therapy Follow as outpatient with PCP CKD --post-op Cr 1.0, stable -Avoid NSAIDs, nephrotoxins GERD --Continue Protonix Hypothyroidism --not on meds -Follow with outpatient PCP DVT prophylaxis: OOB, ambulation, SCDs, TEDs, ASA 81mg BID Dispo: Discharge to [facility] in [place], [place]. Patient will be transported by her family to the rehab center. Minutes to complete discharge: 30 Discharge Summary Problems reviewed: Yes Current Active Problems Status post total hip replacement, left (Acute) - Instructions Diet, Activity, Other Instructions: Dr. Ballesteros Discharge Instructions for Hip Replacement Post Operative Instructions Physical activity Physical Therapist will come to your home for the first 5 days. You will be set up with outpatient PT at your first post-operative visit. Use assistive devices for ambulation at all times. Weight bearing as tolerated on your surgical side. Wound care Leave your surgical dressing in place. Do not change the dressing until seen by your surgeon in the office. No baths or showers. Do not submerge your incision. Do not apply any ointments or lotions to your incision. Please call the office if your dressing is soiled/dirty or is falling off. Apply Graduated Compression Stockings (TEDS) to both lower extremities-remove daily for hygiene ONLY. Diet There are no dietary restrictions. Eat healthy, high-fiber foods. Drink 6 to 8 glasses of liquid each day. This will assist in keeping your bowels are regular. Pain management Any pain prescription medication ordered should be taken as prescribed for moderate to severe pain. Do not take additional Tylenol while taking Percocet. Posterior Hip Precautions: Do not cross the leg you had surgery on over your other leg. (Do not cross your legs.)Use an elevated toilet seat. Do not sit on low chairs or beds. Use purple pillow (abductor) when lying in bed. Take Aspirin 81 mg two times a day for a total of 6 weeks to prevent blood clots. Call Dr. Ballesteros for any of the following: Severe pain not relieved by medication Fever of 101 or higher Excessive bleeding or drainage on dressing Inability to urinate If you experience chest pain or shortness of breath, please seek emergency care immediately. Please call the office at to confirm your post-op appointment for the week following surgery. Disposition: [facility] - Home Medications Comprehensive Discharge Medication List: Ambulatory Orders Amlodipine Besylate 5 mg PO DAILY 02/21/19 Tramadol HCl 50 mg PO TID PRN 02/21/19 Montelukast Sodium [Singulair] 10 mg PO DAILY 02/23/19 Budesonide/Formeterol Fumarate [SYMBICORT 160/4.5mcg -] 2 puff IH BID inhaler 02/25/19 Mag Hydrox/Al Hydrox/Simeth [Mylanta Oral Suspension -] 30 ml PO Q4H PRN cup Magnesium Hydrox 2400MG/30Ml [Milk of Magnesia -] 30 ml PO PRN PRN cup Sennosides/Docusate Sodium [Pericolace -] 2 tablet PO BID tablet 02/25/19 This patient is new to me today: Yes Date on this admission: 11/26/19 Emergency Visit: Yes ED Registration Date: 11/23/19 Care time: The patient presented to the Emergency Department on the above date and was hospitalized for further evaluation of their emergent condition. Critical Care patient: No - Discharge Referral Referred to [facility] Med P.C.: No
[2019-11-26 10:27] VITALS: BP 120/41; PULSE 81; TEMP 98.2
--- NOTE | 2019-11-26 11:18 | PN ---
Progress Note (short form) - Note Progress Note: POD#2 THR Doing well No pain Vitals all stable Wound dry No NVD No VTE Calf soft Subsartorial thigh no tender PLAN PT FWBAT Pain mx Tramadol DVT Prophylaxis Aspirin 81mg BID 6wks D/C home Seein [id number]
== END 2019-11-26 11:00 | DRG 470 ==
LOC: FM/S 07:25
PROVIDERS: ADMIT Internal Medicine
PROC: 0SRB0JA Replacement of Left Hip Joint with Synthetic Substitute, Uncemented, Open Approach (ICD-10-PCS; principal; 2019-11-23 12:25)
DX: M16.12 Unilateral primary osteoarthritis, left hip (principal); K21.9 Gastro-esophageal reflux disease without esophagitis; I12.9 Hypertensive chronic kidney disease with stage 1 through stage 4 chronic kidney disease, or unspecified chronic kidney disease; N18.9 Chronic kidney disease, unspecified; E03.9 Hypothyroidism, unspecified; E78.5 Hyperlipidemia, unspecified; Z88.0 Allergy status to penicillin
CPT/HCPCS: 36415; 73502-TC-LT-FY; 74018-TC-FY; 80048; 83735; 85027; 88305-TC; 88311-TC; 94760; 97116-GP; 97163-GP